=== PATIENT | female | born 2005 | race Two or more races ===

== ENCOUNTER 2024-10-24 06:13 | Inpatient (IN) | payer OTHER ==
[~2024-10-24] VITALS: Ht 157.5 cm; Wt 81.6 kg
[2024-10-24 05:50] VITALS: BP 123/82
[2024-10-24] MEDS ORDERED: PRENATABS RX T1 EACH PO (06:20)
[2024-10-24] MEDS ORDERED: RINGERS SOLUTION,LACTATED 1,000 ML IV SCH (06:30)
[2024-10-24 07:25] VITALS: BP 126/76
[2024-10-24 07:34] LABS: HEMATOCRIT 30.2 % (36.0-45.00); HEMOGLOBIN 10.2 g/dL (12.0-15.00); MEAN CELL VOLUME 79.9 fL (80.00-100.00); MEAN CORPUSCULAR HEMOGLOBIN 26.9 pg (27.00-32.0); MEAN CORPUSCULAR HGB CONC 33.7 g/dl (32.0-36.0); PLATELET COUNT 311 K/uL (150-450); RED BLOOD COUNT 3.78 M/uL (4.00-6.00); RED CELL DISTRIBUTION WIDTH 14.5 % (11.5-14.5)
[2024-10-24 07:48] LABS: URINE APPEARANCE Clear; URINE BILIRRUBIN Negative (NEGATIVE); URINE BLOOD Negative; URINE COLOR Yellow; URINE GLUCOSE Negative (NEGATIVE); URINE KETONE Trace (NEGATIVE); URINE LEUKOCYTE Trace; URINE NITRATE Negative; URINE PROTEIN 30 (NEGATIVE); URINE UROBILINOGEN 0.2 E.U./dl
[2024-10-24 07:55] LABS: URINE BACTERIA 266.8 uL (0.0-1933); URINE CAST 1.76 uL (0.0-1.40); URINE EPITHELIAL CELLS 14.8 uL (0.0-38.8); URINE WBC 105.9 uL (0.0-23.2)
[2024-10-24 08:09] LABS: ALBUMIN 2.5 gm/dL (3.4-5.0); BILIRUBIN TOTAL 0.35 mg/dL (0.3-1.2); CREATININE SERUM 0.55 mg/dL (0.55-1.02); GFR 139.53; GLOBULINA 4.1 G/DL (2.4-3.5); POTASSIUM 3.94 mEq/L (3.5-5.1); TOTAL PROTEIN 6.6 gm/dL (6.4-8.2)
[2024-10-24 08:11] LABS: INR 0.94; PARTIAL THROMBOPLASTIN TIME 26.2 SECONDS (22.0-34.0); PROTHROMBIN TIME 10.3 SECONDS (9.0-11.5)
[2024-10-24 08:51] LABS: URINE CRYSTALS MODERATE /HPF; URINE YEAST NEGATIVE /hpf
[2024-10-24] MEDS ORDERED: OXYTOCIN 20 UNITS/500ML RL PIGGYBAG IV ONE (10:39)
[2024-10-24 10:55] VITALS: BP 116/54
[2024-10-24] MEDS ORDERED: PROMETHAZINE HCL 25 MG/ML AMPUL IV ONE ×2 (11:30→22:30)
[2024-10-24] MEDS ORDERED: MEPERIDINE HCL/PF 50 MG/ML VIAL IV ONE (11:30)
[2024-10-24] MEDS ORDERED: OXYTOCIN 500 ML IV SCH (11:30)
[2024-10-24 15:39] VITALS: BP 136/69; O2SAT 100
[2024-10-24 16:46] VITALS: BP 127/61; O2SAT 100
[2024-10-24 19:04] VITALS: BP 138/68; O2SAT 100
[2024-10-24] MEDS ORDERED: CEFAZOLIN SODIUM 1,000 MG VIAL ONE (19:27)
[2024-10-24] MEDS ORDERED: ERYTHROMYCIN BASE OPHT 1GM EACH TUBE OP ONE (19:38)
[2024-10-24] MEDS ORDERED: OXYTOCIN 10 UNITS/ML VIAL ONE (19:38)
[2024-10-24] MEDS ORDERED: CHLORHEXIDINE GLUCONATE 120 ML BOTTLE TOP ONE (19:39)
[2024-10-24] MEDS ORDERED: CEFAZOLIN SODIUM 1,000 MG VIAL IV SCH (19:45)
[2024-10-24] MEDS ORDERED: KETOROLAC TROMETHAMINE 60 MG VIAL IM ONE ×2 (21:30→22:30)
[2024-10-24] MEDS ORDERED: MEPERIDINE HCL/PF 50 MG/ML VIAL IV SCH (21:30)
[2024-10-24] MEDS ORDERED: PROMETHAZINE HCL 25 MG/ML AMPUL IV SCH (21:30)
[2024-10-24] MEDS ORDERED: MORPHINE SULFATE 4 MG/ML VIAL IV ONE (22:00)
[2024-10-25 00:39] VITALS: BP 117/74
[2024-10-25 05:00] VITALS: BP 110/68
[2024-10-25 06:38] LABS: HEMATOCRIT 26.8 % (36.0-45.00); HEMOGLOBIN 8.9 g/dL (12.0-15.00); MEAN CELL VOLUME 80.3 fL (80.00-100.00); MEAN CORPUSCULAR HEMOGLOBIN 26.7 pg (27.00-32.0); MEAN CORPUSCULAR HGB CONC 33.4 g/dl (32.0-36.0); PLATELET COUNT 277 K/uL (150-450); RED BLOOD COUNT 3.33 M/uL (4.00-6.00); RED CELL DISTRIBUTION WIDTH 14.5 % (11.5-14.5)
[2024-10-25] MEDS ORDERED: OxyCODONE HCL/APAP UD (PERCOCET) PO SCH (07:00)
[2024-10-25 08:00] VITALS: BP 128/80
[2024-10-25] MEDS ORDERED: DOCUSATE CALCIUM 240 MG CAPSULE PO SCH (09:00)
[2024-10-25] MEDS ORDERED: SIMETHICONE 125 MG CAPSULE PO SCH (09:00)
[2024-10-25] MEDS ORDERED: IRON/V.C/V.B12/FOLIC A/VIT. E 1 CAPL CAPLET PO SCH (14:37)
[2024-10-25 17:00] VITALS: BP 94/61
[2024-10-25 23:45] VITALS: BP 118/79
[2024-10-26] MEDS ORDERED: IBUprofen 800 MG TABLET PO SCH (13:00)
[2024-10-26 15:24] VITALS: BP 114/76
[2024-10-27 02:01] VITALS: BP 103/67
[2024-10-27 08:00] VITALS: BP 101/66
== END 2024-10-27 14:46 | disposition home or self-care (01) | DRG 788 ==
LOC: OB/GYN 06:13 → LDR 06:13 → OB/GYN 21:32
PROVIDERS: Specialist; ADMIT Obstetrics & Gynecology; ATTEND Obstetrics & Gynecology
PROC: 4A1HXCZ Monitoring of Products of Conception, Cardiac Rate, External Approach (ICD-10-PCS; 2024-10-24)
PROC: 10D00Z1 Extraction of Products of Conception, Low, Open Approach (ICD-10-PCS; principal; 2024-10-24 19:00)
DX: O82 Encounter for cesarean delivery without indication (principal); O62.1 Secondary uterine inertia; O36.8130 Decreased fetal movements, third trimester, not applicable or unspecified; Z3A.40 40 weeks gestation of pregnancy; Z37.0 Single live birth